=== PATIENT | male | born 1985 | race African-American/Black ===

== ENCOUNTER 2023-05-23 16:49 | Emergency (ER) | payer SELFPAY ==
[~2023-05-23] VITALS: Ht 185.4 cm; Wt 145.0 kg
[2023-05-23 16:55] VITALS: TEMP 98.9; O2SAT 97
[2023-05-23] MEDS: SODIUM CHLORIDE 0.9% 1,000 ML IV ONE (17:24)
[2023-05-23] MEDS: METOCLOPRAMIDE HCL 10MG/2ML VIAL IV ONE (17:24)
[2023-05-23 17:45] LABS: HEMATOCRIT. 37.1 % (42.0-52.0); HEMOGLOBIN. 12.1 g/dL (14.0-18.0); MEAN CORPUSCULAR HEMOGLOBIN 29.5 pg (28.0-32.0); MEAN CORPUSCULAR HGB CONC 32.6 g/dL (31.0-37.0); MEAN CORPUSCULAR VOLUME 90.7 fL (80.0-94.0); MEAN PLATELET VOLUME 7.7 fl (7.4-10.4); PLATELET 307 x1000/uL (130-400); RED BLOOD CELL COUNT 4.09 mill/uL (4.7-6.1); RED CELL DISTRIBUTION WIDTH 13.1 % (11.6-14.6); WHITE BLOOD COUNT 8.3 x1000/uL (4.5-11.0)
[2023-05-23 17:48] LABS: DIFFERENTIAL COMMENT 1
[2023-05-23 17:54] LABS: INR 0.9; PROTHROMBIN TIME 10.3 sec (9.6-11.0)
[2023-05-23 18:09] LABS: ALANINE AMINOTRANSFERASE 16 IU/L (10-49); ALBUMIN 4.7 g/dL (3.2-4.8); ASPARTATE AMINOTRANSFERASE 17 IU/L (<34); BILIRUBIN TOTAL 0.6 mg/dL (0.1-1.0); CALCIUM 9.1 mg/dL (8.7-10.4); CARBON DIOXIDE 28 mEq/L (21-32); CHLORIDE 103 mEq/L (98-107); CREATININE 0.8 mg/dL (0.6-1.3); GLUCOSE 255 mg/dL (70-105); POTASSIUM 3.7 mEq/L (3.5-5.1); PROTEIN TOTAL 7.5 g/dL (6.0-8.3); SODIUM 138 mEq/L (136-145); UREA NITROGEN BLOOD 9 mg/dL (9-23)
[2023-05-23 18:12] LABS: PLATELET ESTIMATE NORMAL
[2023-05-23] MEDS: HALOPERIDOL LACTATE 5MG/ML VIAL IM ONE (19:06)
[2023-05-23 19:52] LABS: CLARITY URINE CLEAR (CLEAR); COLOR URINE YELLOW (YELLOW); GLUCOSE URINE 3+ (NEGATIVE); KETONES URINE 1+ (NEGATIVE); LEUKOCYTE ESTERASE URINE NEGATIVE (NEGATIVE); NITRITE URINE NEGATIVE (NEGATIVE); OCCULT BLOOD URINE NEGATIVE (NEGATIVE); PH URINE 7.5 (4.5-8.0); PROTEIN URINE NEGATIVE (NEGATIVE); SPECIFIC GRAVITY URINE 1.021 (1.005-1.030); UROBILINOGEN URINE 0.2 E.U./dL (0.2-1.0)
[2023-05-23] MEDS ORDERED: METO-293 MT (20:11)
[2023-05-23] MEDS ORDERED: DICY-18 MT (20:11)
[2023-05-23 20:15] LABS: BACTERIA URINE NONE SEEN; RBC URINE NONE SEEN /hpf (0-2); SQUAMOUS EPITHELIAL CELL URINE NONE SEEN /lpf (RARE/1+); WBC URINE NONE SEEN /hpf (0-2)
[2023-05-23 20:48] VITALS: BP 138/83; PULSE 79; RESP 19
== END 2023-05-23 20:51 | disposition home or self-care (01) ==
LOC: ER 16:49
DX: R10.9 Unspecified abdominal pain (principal); R11.2 Nausea with vomiting, unspecified; I10 Essential (primary) hypertension; E11.9 Type 2 diabetes mellitus without complications
CPT/HCPCS: 80053; 81003; 83690; 85025; 85610; 36415; 74177; 96372; 96374; 99285; J1630; J2765; J7030; Z7610 ×3

== ENCOUNTER 2023-05-26 04:19 | Emergency (ER) | payer SELFPAY ==
[~2023-05-26] VITALS: Ht 177.8 cm; Wt 143.0 kg
[~2023-05-26 04:19] MED LIST: DICY-18 MT; METO-293 MT
[2023-05-26 04:24] VITALS: O2SAT 99
[2023-05-26] MEDS: MORPHINE SULFATE 4 MG/ML INJ (FOR IV/IM USE) IV STA (05:12)
[2023-05-26] MEDS: KETOROLAC 30MG/ML VIAL IV STA (05:12)
[2023-05-26] MEDS: ONDANSETRON HCL 4MG/2ML INJ IV STA (05:12)
[2023-05-26] MEDS: DICYCLOMINE HCL 10MG/ML 2ML VIAL IM ONE (05:15)
[2023-05-26] MEDS: SODIUM CHLORIDE 0.9% 1,000 ML IV ONE (05:15)
[2023-05-26 06:16] LABS: BASOPHILS % 0.6 % (0.0-2.0); EOSINOPHILS % 0.4 % (0.0-5.0); HEMATOCRIT. 37.4 % (42.0-52.0); HEMOGLOBIN. 12.4 g/dL (14.0-18.0); LYMPHOCYTES % 19.9 % (20.0-50.0); MEAN CORPUSCULAR HEMOGLOBIN 30.1 pg (28.0-32.0); MEAN CORPUSCULAR HGB CONC 33.2 g/dL (31.0-37.0); MEAN CORPUSCULAR VOLUME 90.5 fL (80.0-94.0); MEAN PLATELET VOLUME 7.8 fl (7.4-10.4); MONOCYTES % 6.5 % (2.0-8.0); NEUTROPHILS % 72.6 % (40.0-76.0); PLATELET 177 x1000/uL (130-400); RED BLOOD CELL COUNT 4.13 mill/uL (4.7-6.1); RED CELL DISTRIBUTION WIDTH 12.7 % (11.6-14.6); WHITE BLOOD COUNT 6.8 x1000/uL (4.5-11.0)
[2023-05-26 06:29] LABS: ALANINE AMINOTRANSFERASE 14 IU/L (10-49); ALBUMIN 4.5 g/dL (3.2-4.8); ASPARTATE AMINOTRANSFERASE 18 IU/L (<34); BILIRUBIN TOTAL 0.7 mg/dL (0.1-1.0); CARBON DIOXIDE 28 mEq/L (21-32); CHLORIDE 97 mEq/L (98-107); CREATININE 1.1 mg/dL (0.6-1.3); GLUCOSE 217 mg/dL (70-105); PROTEIN TOTAL 6.9 g/dL (6.0-8.3); SODIUM 134 mEq/L (136-145); UREA NITROGEN BLOOD 8 mg/dL (9-23)
[2023-05-26] MEDS ORDERED: ONDA4TAB11 PO (07:33)
[2023-05-26] MEDS ORDERED: DICY20TA2 MT (07:33)
[2023-05-26 07:48] VITALS: BP 169/102; PULSE 78; RESP 12; TEMP 98.9
== END 2023-05-26 08:29 | disposition home or self-care (01) ==
LOC: ER 04:58
DX: R10.9 Unspecified abdominal pain (principal); R11.2 Nausea with vomiting, unspecified; F19.90 Other psychoactive substance use, unspecified, uncomplicated; E11.9 Type 2 diabetes mellitus without complications; I10 Essential (primary) hypertension
CPT/HCPCS: 99284; 96374; 96375; 96361; 80053; 83690; 85025; 36415; 74018; 96372; J0500; J1885; J2405; J2270; J7030